=== PATIENT | male | born 1950 | race Caucasian/White ===

== ENCOUNTER 2017-01-16 18:54 | Inpatient (IN) | payer OTHER ==
[2017-01-16 19:21] LABS: COLOR YELLOW; LEUKOCYTE ESTERASE,URINE NEGATIVE (NEGATIVE); NITRITE,URINE NEGATIVE (NEGATIVE); PH,URINE 5.5 (5.0-7.5)
[2017-01-16] MEDS ORDERED: NS 1,000 ML IV ONE (19:36)
[2017-01-16 19:51] LABS: % IMMATURE GRANULYOCYTES 0.5 % (0.0-1.1); ABSOLUTE IMMATURE GRANULOCYTES 0.08 10^3/uL (0.00-0.10); ADD DIFF? NO; ADD MORPH? NO; ADD SCAN? NO; ATYPICAL LYMPHOCYTE FLAG 0 (0-99); FRAGMENT RBC FLAG 0 (0-99); HEMATOCRIT 39.6 % (40.0-51.0); HEMOGLOBIN 14.2 g/dL (13.7-17.5); LEFT SHIFT FLG 0 (0-99); LIPEMIA HEMOLYSIS FLAG 90 (0-99); MEAN CELL HEMOGLOBIN 30.7 pg (27.9-34.1); MEAN CELL HEMOGLOBIN CONCENTR. 35.9 g/dL (32.4-36.7); MEAN CELL VOLUME 85.5 fL (81.5-99.8); MEAN PLATELET VOLUME 9.7 fL (8.7-11.7); PLATELET CLUMPS FLAG 0 (0-99); PLATELET COUNT 177 10^3/uL (150-400); RED BLOOD CELL COUNT 4.63 10^6/uL (4.40-6.38); RED CELL DISTRIBUTION WIDTH 12.6 % (11.5-15.2)
[2017-01-16] MEDS ORDERED: KETOROLAC 30 MG/1 ML SDV IVP ONE (20:01)
[2017-01-16 20:07] LABS: ALANINE AMINOTRANSFERASE 32 IU/L (21-72); ALBUMIN 3.7 g/dL (3.5-5.0); ALKALINE PHOSPHATASE 61 IU/L (38-126); ANION GAP 16 mEq/L (8-16); ASPARTATE AMINOTRANSFERASE 25 IU/L (17-59); BILIRUBIN,TOTAL 0.9 mg/dL (0.1-1.4); CALCIUM 9.1 mg/dL (8.5-10.4); CARBON DIOXIDE 20 mEq/l (22-31); CHLORIDE 99 mEq/L (97-110); GLOMERULAR FILTRATION RATE > 60; GLUCOSE 112 mg/dL (70-100); POTASSIUM 3.6 mEq/L (3.5-5.2); SODIUM 135 mEq/L (134-144)
[2017-01-16] MEDS ORDERED: IOPAMIDOL (ISOVUE-300) 100 ML BTL IV ONE (20:23)
--- NOTE | 2017-01-16 20:40 | UCPHY ---
H & P Patient Type: Established Chief Complaint Nursing Narrative: diagnosed with spastic bronchial asthma a few weeks ago and has had a severe cough with this. This worsened approx 1 week ago when he developed a ton of nasal discharge. 2 days ago developed right side abdominal pain and abdominal distention and had a sypocal event while using the bathroom. Has no appetite, but denies vomiting and had nausea 2 days ago. Has been consipated with all of this and also complains of difficulty urinating. Time Seen by Provider: 01/16/17 19:36 HPI/ROS: This patient complains of abdominal pain. Explains that starting on Friday he developed pain associated with bloating and actually had 8/10 peak intensity. The bloating has resolved but he has now pain localized to the right lower quadrant. It is 3/10 at baseline goes 8/10 with movement. He was also recently diagnosed with bronchitis and he states that when he coughs he has more pain to the right lower quadrant. He has never had this pain before which she describes as achy and sharp. The intensity has been steadily increasing over the past 48 hours. He has anorexia. He did eat a sandwich this evening at 5:30 p.m.-girl cheese. ROS: No high fevers or chills. No other constitutional symptoms. HEENT: Mild coryza. No other complaints pulmonary: Dry cough no shortness of breath. GI: Again mild anorexia, no nausea vomiting or diarrhea. Reports normal bowel movements. : He reports mild difficulty initiating his urine stream and minimal dysuria associated with this. No testicular pain or swelling. No flank pain. 10 point ROS is otherwise negative. Source: Patient Exam Limitations: No limitations - Personal History Tetanus Vaccine Date: unsure - Medical/Surgical History PMH: Recent diagnosis of bronchitis Hypertension Hypercholesterolemia CABG 2006 P. Surg Hx: No previous abdominal surgeries Hx Asthma: Yes Hx Chronic Respiratory Disease: No Hx Diabetes: No Hx Cardiac Disease: Yes Hx Renal Disease: No Hx Cirrhosis: No Hx Alcoholism: No Hx HIV/AIDS: No Hx Splenectomy or Spleen Trauma: No Other PMH: Cabg 2006, high cholesterol, hypertension - Family History Significant Family History: No pertinent family hx - Social History Smoking Status: Never smoked Alcohol Use: Occasionally Drug Use: None - Physical Exam Exam: General Appearance: Alert, no distress. Eyes: Pupils equal and round no pallor or injection. ENT, Mouth: Mucous membranes moist. Respiratory: Occasional dry cough. There are no retractions, lungs are clear to auscultation. Cardiovascular: Regular rate and rhythm. Gastrointestinal: Normoactive bowel sounds. Soft, positive right lower quadrant tenderness with mild rebound tenderness. No upper belly tenderness. No organomegaly. Back: No CVA tenderness : No testicular tenderness or swelling Neurological: Alert with no focal deficits Skin: Warm and dry, no rashes. Musculoskeletal: Neck is supple nontender. Extremities are symmetrical, full range of motion. Psychiatric: Mood and affect normal DIFFERENTIAL DIAGNOSIS: After history and physical exam differential diagnosis was considered for appendicitis, diverticulitis, mesenteric adenitis, bowel obstruction Constitutional: Initial Vital Signs Temperature (C) 37.0 C 01/16/17 19:02 Heart Rate 114 H 01/16/17 19:02 Respiratory Rate 18 01/16/17 19:02 Blood Pressure 108/60 01/16/17 19:02 O2 Sat (%) 94 01/16/17 19:02 O2 Delivery Mode Room Air Allergies/Adverse Reactions: No Known Allergies Allergy (Unverified 04/08/16 18:31) Home Medications: Medication Instructions Recorded Lisinopril 04/08/16 Proair Respiclick 04/08/16 SIMVASTATIN 04/08/16 Singulair 04/08/16 Aspirin 325 mg (*) 01/16/17 Medical Decision Making - Diagnostics EKG Interpretation: 12 lead EKG performed at approximately 9:30 p.m.-preop appendicitis with history of CABG Sinus rhythm at 85 Inferior Q-waves. No acute ST abnormalities. Overall assessment sinus rhythm with evidence of old inferior infarct. (Please refer to trace master for complete read.) Imaging: CT abdomen pelvis with IV contrast reveals appendicitis with likely rupture per Dr. Woody MurilloShsiazw-jakucpoamzr-nedqyvsh significant inflammation surrounding the appendix. ED Course/Re-evaluation: IV normal saline bolus with resolution of tachycardia I reviewed the patient's labs-significant leukocytosis. Electrolytes normal The patient declined morphine stating that he has severe suppressed level of mentation/consciousness with even small doses of opiates in the past. He is given Toradol instead 30 mg IV he had good pain relief from this has mild discomfort after Toradol. After review of CT scan, ertapenem 1 g IV I spoke with Dr. Ze Lemus, general surgeon on-call who accepts patient for transfer to [facility] I spoke to Dr. Nation, emergency physician at [facility] accepts the patient for transfer. EMS is here at 9:48 p.m. for transfer. Patient is comfortable with stable vital signs. He understands the plan to proceed to [facility] for surgery - Data Points Laboratory Results: Laboratory Results 01/16/17 19:43 01/16/17 19:43 01/16/17 01/16/17 01/16/17 19:43 19:43 19:10 WBC 17.62 10^3/uL H 10^3/uL (3.80-9.50) RBC 4.63 10^6/uL 10^6/uL (4.40-6.38) Hgb 14.2 g/dL g/dL (13.7-17.5) Hct 39.6 % L % (40.0-51.0) MCV 85.5 fL fL (81.5-99.8) MCH 30.7 pg pg (27.9-34.1) MCHC 35.9 g/dL g/dL (32.4-36.7) RDW 12.6 % % (11.5-15.2) Plt Count 177 10^3/uL 10^3/uL (150-400) MPV 9.7 fL fL (8.7-11.7) Neut % (Auto) 83.7 % H % (39.3-74.2) Lymph % (Auto) 7.4 % L % (15.0-45.0) [place] % (Auto) 8.2 % % (4.5-13.0) Eos % (Auto) 0.1 % L % (0.6-7.6) Baso % (Auto) 0.1 % L % (0.3-1.7) Nucleat RBC Rel Count 0.0 % % (0.0-0.2) Absolute Neuts (auto) 14.75 10^3/uL H 10^3/uL (1.70-6.50) Absolute Lymphs (auto) 1.31 10^3/uL 10^3/uL (1.00-3.00) Absolute Monos (auto) 1.45 10^3/uL H 10^3/uL (0.30-0.80) Absolute Eos (auto) 0.01 10^3/uL L 10^3/uL (0.03-0.40) Absolute Basos (auto) 0.02 10^3/uL 10^3/uL (0.02-0.10) Absolute Nucleated RBC 0.00 10^3/uL 10^3/uL (0-0.01) Immature Gran % 0.5 % % (0.0-1.1) Immature Gran # 0.08 10^3/uL 10^3/uL (0.00-0.10) Sodium 135 mEq/L mEq/L (134-144) Potassium 3.6 mEq/L mEq/L (3.5-5.2) Chloride 99 mEq/L mEq/L (97-110) Carbon Dioxide 20 mEq/l L mEq/l (22-31) Anion Gap 16 mEq/L mEq/L (8-16) BUN 25 mg/dL H mg/dL (7-23) Creatinine 1.0 mg/dL mg/dL (0.7-1.3) Estimated GFR > 60 Glucose 112 mg/dL H mg/dL (70-100) Calcium 9.1 mg/dL mg/dL (8.5-10.4) Total Bilirubin 0.9 mg/dL mg/dL (0.1-1.4) AST 25 IU/L IU/L (17-59) ALT 32 IU/L IU/L (21-72) Alkaline Phosphatase 61 IU/L IU/L (38-126) Total Protein 7.0 g/dL g/dL (6.3-8.2) Albumin 3.7 g/dL g/dL (3.5-5.0) Lipase 103.0 IU/L IU/L (23-300) Urine Color YELLOW Urine Appearance CLEAR Urine pH 5.5 (5.0-7.5) Ur Specific [place] 1.015 (1.002-1.030) Urine Protein NEGATIVE (NEGATIVE) Urine Ketones TRACE H (NEGATIVE) Urine Blood NEGATIVE (NEGATIVE) Urine Nitrate NEGATIVE (NEGATIVE) Urine Bilirubin NEGATIVE (NEGATIVE) Urine Urobilinogen 0.2 EU EU (0.2-1.0) Ur Leukocyte Esterase NEGATIVE (NEGATIVE) Ur Culture Indicated? NOT INDICATED (NI) Urine Glucose NEGATIVE (NEGATIVE) Medications Given: Discontinued Medications Sodium Chloride (Ns) 1,000 mls @ 0 mls/hr IV ONCE ONE PRN Reason: Wide Open Stop: 01/16/17 19:37 Last Admin: 01/16/17 20:05 Dose: 1,000 mls Ertapenem 1 gm/ Sodium (Chloride) 100 mls @ 200 mls/hr IV EDNOW ONE PRN Reason: Protocol Stop: 01/16/17 21:30 Last Admin: 01/16/17 21:05 Dose: 100 mls Ketorolac Tromethamine (Toradol) 30 mg IVP EDNOW ONE Stop: 01/16/17 20:02 Last Admin: 01/16/17 20:11 Dose: 30 mg Departure - Departure Disposition: Home, Routine, Self-Care Clinical Impression: Acute appendicitis with rupture Condition: Fair Referrals: NONE *PRIMARY CARE P,. [Primary Care Provider] - As per Instructions - PQRS PQRS Measurement: 134: Depression screening and followup, PRIME MD-PHQ2 (12 years and older) Over the last 2 weeks, how often have you been bothered by any of the following problems? 1. Feeling down, depressed, or hopeless? 2. Little interest or pleasure in doing things? Patient answered no to both 1 and 2 130: Documentation of medications. Reviewed all patient medications, doses, route and frequency. 226: Do you smoke? [No.] 47: 65 and older: Advanced care planning. Patient designates surrogate decision maker as spouse 51: 18 years old and older with diagnosis of COPD, spirometry performance. NA 52: 18 years old and older with COPD and symptoms of COPD or FEV1<60% predicted prescribed a B Agonist. NA
[2017-01-16] MEDS ORDERED: ERTAPENEM 1 GM in NS 100 ML IV ONE (21:01)
--- NOTE | 2017-01-16 21:26 | CPEKG ---
Heart Rate: 85 RR Interval: 706 P-R Interval: 168 QRSD Interval: 104 QT Interval: 360 QTC Interval: 428 P Soledad: 68 QRS Soledad: 32 T Wave Soledad: 20 EKG Severity - ABNORMAL ECG - EKG Impression: SINUS RHYTHM EKG Impression: INFERIOR INFARCT, AGE INDETERMINATE Electronically Signed By: Denzel Elise 16-Jan-2017 21:47:34
[2017-01-16] MEDS ORDERED: ceFAZolin 1 GM VIAL ONE (22:08)
[2017-01-16] MEDS ORDERED: BUPIVACAINE 0.5% 30 ML SDV ONE (22:08)
[2017-01-16] MEDS ORDERED: ceFAZolin 1 GM/5 ML SYR ONE ×2 (22:09→22:34)
[2017-01-16] MEDS ORDERED: HEPARIN 1000 UNIT/1 ML MDV ONE (22:34)
[2017-01-16] MEDS ORDERED: MIDAZOLAM 2 MG/2 ML VIAL ONE (22:46)
[2017-01-16] MEDS ORDERED: fentaNYL 100 MCG/2 ML INJ ONE (22:51)
[2017-01-16] MEDS ORDERED: PROPOFOL 200 MG/20 ML VIAL ONE ×2 (22:51)
--- NOTE | 2017-01-16 23:31 | GHP ---
DATE OF ADMISSION: 01/16/2017 PREOPERATIVE DIAGNOSIS: Possible perforated appendicitis. HISTORY OF PRESENT ILLNESS: A 66-year-old male who developed abdominal pain nearly 72 hours ago, an d his pain is persistent in the right lower quadrant. He came to the emergency room tonight. A CT scan shows appendicitis with probable perforation. White count is markedly elevated at 15,000. He is afebrile. He has not been able the eat much today. No emesis or diarrhea. He has had no previo us abdominal surgery. He is admitted at this time for laparoscopic appendectomy. The risks and opt ions have been fully discussed with the patient and his who wished to proceed. PAST HISTORY: Coronary artery bypass. Rotator cuff surgery. [place] teeth extraction. MEDICATIONS: Lisinopril, Zocor, and aspirin. ALLERGIES: None to medications, but severe seasonal allergies. REVIEW OF SYSTEMS: Reveals he has had asthma in the past but that seemed to resolve with moving to [place]. He denies any active cardiac symptoms, peptic ulcer disease, epilepsy, diabetes, or any o ther major medical problems on a full complete review of systems. PHYSICAL EXAMINATION: GENERAL APPEARANCE: He is an alert, 66-year-old male who is in some discomfo rt. Quite talkative. He is afebrile. HEAD and NECK: Reveals no icterus, no adenopathy, and no br uits. CHEST: Clear and symmetrical. CARDIAC: Regular rhythm without murmurs. ABDOMEN: Soft. H e is very tender in the right lower quadrant with guarding and some rebound. There are no hernias. GENITALIA: Normal. EXTREMITIES: Benign with full pulses. IMPRESSION: Acute appendicitis with possible perforation. PLAN: Laparoscopic appendectomy. Risks and options have been fully discussed, and he wishes to pro ceed. /[id number]/MODL
[2017-01-16] MEDS ORDERED: ONDANSETRON 4 MG/2 ML VIAL ONE (23:34)
[2017-01-16] MEDS ORDERED: DEXAMETHASONE 4 MG/ML VIAL ONE (23:34)
[2017-01-16] MEDS ORDERED: KETOROLAC 30 MG/1 ML SDV ONE (23:34)
--- NOTE | 2017-01-17 00:06 | POSTOPPROG ---
Post Op Note Date of Operation: 01/17/17 Surgeon: Scott Lemus Anesthesiologist: JOHN Anesthesia: GET(General Endotracheal) Pre-op Diagnosis: PERFORATED APPENDIX Post-op Diagnosis: SAME Indication: RLQ PAIN Procedure: LAP APPE AND DRAINAGE Findings: GANGRENOUS APPE WITH LOCALIZED SMALL ABSCESS Inf/Abcess present in the surg proc area at time of surgery?: Yes Depth: Organ Space EBL: Minimal Complications: 0 Drains: Saqib Webb Specimen(s): APPENDIX
[2017-01-17] MEDS ORDERED: ONDANSETRON 4 MG/2 ML VIAL IVP PRN (00:07)
[2017-01-17] MEDS ORDERED: HYDROmorphONE/DILAUDID 1 MG/ML SYR IVP PRN (00:07)
[2017-01-17] MEDS ORDERED: D5W 1/2 NS W/ 20 KCl/L 1,000 ML IV SCH (00:15)
--- NOTE | 2017-01-17 03:21 | GOP ---
DATE OF OPERATION: 01/16/2017 SURGEON: Scott Lemus MD PREOPERATIVE DIAGNOSIS: Perforated appendix. POSTOPERATIVE DIAGNOSIS: Perforated appendix. PROCEDURE PERFORMED: Laparoscopic appendectomy and drainage of appendiceal abscess. FINDINGS: The patient was found to have acute gangrenous retrocecal appendicitis, with early perfor ation. ESTIMATED BLOOD LOSS: Blood loss was negligible. No complications. He was taken to the recovery room in good condition. DESCRIPTION OF PROCEDURE: The patient was taken to the operating room where he received satisfactor y general endotracheal anesthesia by Dr. Jolley. Placed in supine position, prepped and draped in th e usual sterile fashion. A periumbilical incision was made. A Veress needle inserted. Pneumoperit oneum was established. A trocar was introduced. Laparoscope introduced. Good visualization was ob tained. Two other trocars were placed in the lower abdomen under direct vision. The cecum was rota farhad medially. The appendix was identified in the retrocecal position. It was quite fixed to the wa ll of the cecum and to the retroperitoneum. This was freed up with the Harmonic Scalpel until the b ase of the appendix could be well identified. The mesoappendix was divided with the Harmonic Scalpe l. The base of the appendix was divided with the Endo-NARCISA stapler. The appendix was taken down in a retrograde manner, it from the retroperitoneum and the posterolateral wall of the cecum and ascending colon. There was a small abscess that was encountered. The appendix was placed in a specimen bag and extracted through the upper midline port site. The wound was copiously irrigated. A 15 round silicone MARK drain was brought in through one of the trocar sites, placed in the cul-de- sac and the right gutter was secured to the skin with a 3-0 silk suture. Prior to this, the wound h ad been copiously irrigated, and all easy to remove debris was suctioned free. Trocars were then re moved under direct vision. Trocar sites were closed with 0 Vicryl for the fascia, 4-0 Monocryl subc uticular stitch for the skin. All wounds were infiltrated with 0.5% Marcaine. He tolerated the pro cedure well. /[id number]/MODL
[2017-01-17] MEDS: KETOROLAC 15 MG/1 ML SDV IVP SCH ×3 (06:12→18:14)
[2017-01-17] MEDS: ERTAPENEM 1 GM in NS 100 ML IV SCH (09:11)
[2017-01-17] MEDS: ENOXAPARIN 40 MG/0.4 ML SYR SC SCH (09:14)
--- NOTE | 2017-01-17 17:03 | SOAPPROG ---
SOAP Progress Note Assessment/Plan: Assessment: DOING WELL POSTOP PERFORATED APPENDIX / AFEBRILE AND MINIMAL PAIN / TOLERATING CLEARS Plan: PROBABLY HOME IN THE A.M. ON ORAL ANTIBIOTICS AND FOLLOW-UP NEXT WEEK FOR DRAIN REMOVAL 01/17/17 17:02 Objective: Vital Signs Temp Pulse Resp BP Pulse Ox 37.0 C 62 16 100/64 94 01/17/17 12:00 01/17/17 12:00 01/17/17 12:00 01/17/17 12:00 01/17/17 12:00 01/16/17 01/17/17 01/18/17 05:59 05:59 05:59 Intake Total 2420 Output Total 300 Balance 2120 ICD10 Worksheet Patient Problems: Problems Problem Status Onset Acute appendicitis with rupture Acute
[2017-01-17] MEDS: OXYCODONE/APAP 5/325 TAB PO PRN (18:16)
[2017-01-17] MEDS ORDERED: ALBUTEROL 3 ML DEYVIAL IH PRN (18:39)
[2017-01-18] MEDS: KETOROLAC 15 MG/1 ML SDV IVP SCH ×2 (00:29→06:26)
[2017-01-18] MEDS: OXYCODONE/APAP 5/325 TAB PO PRN ×2 (00:37→11:20)
--- NOTE | 2017-01-18 08:16 | SOAPPROG ---
SOAP Progress Note Assessment/Plan: Assessment: s/p lap appy for gangrenous appendicitis. Much improved DC home augmentin and norco S: Flatus but no BM. Pain controlled O: BS present, soft, incisions cdi, MARK serosang Plan: 01/18/17 08:15 Objective: Vital Signs Temp Pulse Resp BP Pulse Ox 37.1 C 72 17 124/63 H 91 L 01/18/17 06:25 01/18/17 06:25 01/18/17 06:25 01/18/17 06:25 01/18/17 06:25 01/17/17 01/18/17 01/19/17 05:59 05:59 05:59 Intake Total 2420 500 Output Total 300 2.5 Balance 2120 497.5 ICD10 Worksheet Patient Problems: Problems Problem Status Onset Acute appendicitis with rupture Acute
[2017-01-18] MEDS: ENOXAPARIN 40 MG/0.4 ML SYR SC SCH (08:40)
[2017-01-18] MEDS: ERTAPENEM 1 GM in NS 100 ML IV SCH (08:41)
[2017-01-18 09:33] VITALS: RESP 18
[2017-01-18 09:45] VITALS: BP 115/57; PULSE 88; TEMP 99.8; O2SAT 91
[2017-01-18] MEDS ORDERED: FLU VACC QS 2016-17(3-64YR)/PF 0.5 ML SYR (FLUARIX QUAD) IM ONE (09:52)
== END 2017-01-18 12:10 | disposition home or self-care (01) | DRG 340 ==
LOC: CED 18:54 → CEDHOLD 21:17 → FOB 01-17 00:45
PROVIDERS: ADMIT Surgery; ATTEND Surgery
PROC: 0DTJ4ZZ Resection of Appendix, Percutaneous Endoscopic Approach (ICD-10-PCS; principal; 2017-01-16 22:00)
DX: K35.2 Acute appendicitis with generalized peritonitis (principal); I10 Essential (primary) hypertension; E78.00 Pure hypercholesterolemia, unspecified; J45.909 Unspecified asthma, uncomplicated; Z23 Encounter for immunization; Z95.1 Presence of aortocoronary bypass graft
CPT/HCPCS: 74177-PO; 80053-PO; 81003-PO; 83690-PO; 85025-PO; 96361-PO; 96365-PO; 96375-PO; 99215-PO; G0008; G0463-PO; J0690; J1100; J1335; J1650; J1885; J2250; J2405; J2704; J3010; Q9967

== ENCOUNTER 2017-01-20 19:38 | Emergency (ER) | payer OTHER | END 2017-01-20 19:49 | disposition left against medical advice (07) | LOC: CED 19:38 | DX: T85.638A Leakage of other specified internal prosthetic devices, implants and grafts, initial encounter (principal); Z53.8 Procedure and treatment not carried out for other reasons ==

== ENCOUNTER 2017-01-20 20:11 | Emergency (ER) | payer OTHER ==
[2017-01-20 20:23] VITALS: BP 127/79; PULSE 87; RESP 16; TEMP 98.1; O2SAT 94
--- NOTE | 2017-01-20 21:01 | EDPHY ---
H & P Stated Complaint: apendectomy on , incision leaking Time Seen by Provider: 01/20/17 21:01 - Personal History Current Tetanus/Diphtheria Vaccine: Unsure Current Tetanus Diphtheria and Acellular Pertussis (TDAP): Unsure Tetanus Vaccine Date: unsure - Medical/Surgical History Hx Asthma: Yes Hx Chronic Respiratory Disease: No Hx Diabetes: No Hx Cardiac Disease: Yes Hx Renal Disease: No Hx Cirrhosis: No Hx Alcoholism: No Hx HIV/AIDS: No Hx Splenectomy or Spleen Trauma: No Other PMH: Cabg 2005, high cholesterol, hypertension, appendectomy 2016 - Social History Smoking Status: Never smoked Constitutional: Initial Vital Signs Temperature (C) 36.7 C 01/20/17 20:20 Heart Rate 87 01/20/17 20:20 Respiratory Rate 16 01/20/17 20:20 Blood Pressure 127/79 H 01/20/17 20:20 O2 Sat (%) 94 01/20/17 20:20 O2 Delivery Mode Room Air Allergies/Adverse Reactions: No Known Allergies Allergy (Verified 01/20/17 20:23) Home Medications: Medication Instructions Recorded Albuterol [Proventil Inhaler HFA 1 - 2 puffs IH DAILY PRN 04/08/16 (*)] Atorvastatin Calcium [Lipitor 40 80 mg PO DAILY 04/08/16 mg (*)] Lisinopril [Zestril 10 mg (*)] 10 mg PO DAILY 04/08/16 Montelukast Sodium [Singulair 10 10 mg PO DAILY 04/08/16 mg (*)] Aspirin [Aspirin 325 mg (*)] 325 mg PO DAILY 01/16/17 Amoxicillin/Clavulanate Pot 875 mg PO BID #0 tab 01/18/17 [Augmentin 875 MG TAB (*)] oxyCODONE/APAP 5/325 [Percocet 1 - 2 tab PO Q4 PRN #0 tab 01/18/17 5/325 (*)] Medical Decision Making ED Course/Re-evaluation: CHIEF COMPLAINT: Appendectomy drainage device leaking. HISTORY OF PRESENT ILLNESS: The patient is a 66-year-old male status post appendectomy 4 days ago who presents because his appendectomy device is leaking serosanguineous discharge. This began today. He denies bleeding, fever, or other complications. His device was supposed to come out today anyway. REVIEW OF SYSTEMS: A 10 point review of systems was performed and is negative with the exception of the elements mentioned in the history of present illness. PHYSICAL EXAM: HR, BP, O2 Sat, RR. Temp noted General Appearance: Alert, well hydrated, appropriate, and non-toxic appearing. Head: Atraumatic without scalp tenderness or obvious injury Eyes: Pupils equal, round, reactive to light and accommodation, EOMI, no trauma , no injection. Ears: Clear bilaterally, no perforation, normal landmarks Nose: Atraumatic, no rhinorrhea, clear. Throat: There is no erythema or exudates, no lesions, normal tonsils, mucus membranes moist. Neck: Supple, 2+ carotid upstroke, nontender, no lymphadenopathy. Respiratory: No retractions, no distress, no wheezes, and no accessory muscle use. Lungs are clear to auscultation bilaterally. Cardiovascular: Regular rate and rhythm, no murmurs, rubs, or gallops. Bilateral carotid, radial, dorsalis pedis, and posterior tibial pulses intact. Good capillary refill all extremities. Gastrointestinal: Abdomen is soft, nontender, non-distended, no masses, no rebound, no guarding, no peritoneal signs. Appendectomy drain in place. There is clear serosanguineous discharge from around the entry point. There is no blood and no pus. Musculoskeletal: Normal active ROM of all extremities, atraumatic. Neurological: Alert, appropriate, and interactive. The patient has normal DTRs and non-focal cranial nerves, motor, sensory, and cerebellar exam. Skin: No rashes, good turgor, no nodules on palpation. Past medical history: CABG, hypercholesterolemia, hypertension. Past surgical history:Appendectomy. Family history:N/A. Social history:. DIFFERENTIAL DIAGNOSIS: MEDICAL DECISION MAKIN-year-old male status post appendectomy by Dr. Lemus 4 days ago. His appendectomy drain was supposed to be removed today but he could not get an appointment until Friday. This morning he noticed that there was clear drainage seeping out from around the entry point of the drain in his lower abdomen. There is no blood and no pus in the discharge. The wound otherwise looks good. His other incisions are clean, dry, and intact. I have removed the drain and the patient will follow up with Dr. Lemus on Friday as scheduled. Departure - Departure Disposition: Home, Routine, Self-Care Clinical Impression: appencectomy drain removal Condition: Good Instructions: Acute Wounds (ED) Additional Instructions: Follow up Dr. Lemus on Friday as scheduled. Return to the emergency department for any serious worsening of condition. Referrals: Mateo Gillespie MD [Primary Care Provider] - As per Instructions Scott Lemus MD [Medical Doctor] - As per Instructions Report Scribed for: Bienvenido Rivera Report Scribed by: Ruiz Simpson Date of Report: 01/20/17 Time of Report: 21:20
== END 2017-01-20 21:15 | disposition home or self-care (01) ==
DX: Z46.59 Encounter for fitting and adjustment of other gastrointestinal appliance and device (principal); J45.909 Unspecified asthma, uncomplicated; I10 Essential (primary) hypertension; Z79.82 Long term (current) use of aspirin; Y73.2 Prosthetic and other implants, materials and accessory gastroenterology and urology devices associated with adverse incidents

== ENCOUNTER 2018-03-07 13:40 | Emergency (ER) | payer OTHER ==
[2018-03-07] MEDS ORDERED: DEXAMETHASONE 4 MG TAB PO ONE (14:55)
--- NOTE | 2018-03-07 15:59 | EDPHY ---
H & P Time Seen by Provider: 03/07/18 14:34 HPI/ROS: CHIEF COMPLAINT: Severe left-sided neck pain HISTORY OF PRESENT ILLNESS: This is a 67-year-old gentleman who presents to the emergency department reporting that the patient has had intense left lower neck/trapezius pain [No fever, chills, chest pain, shortness of breath, palpitations, vomiting, diarrhea, urinary complaints, headache, lightheadedness. ] REVIEW OF SYSTEMS: Aside from elements discussed in the HPI, a comprehensive 10-point review of systems was reviewed and is negative. PAST MEDICAL HISTORY: [ ] SOCIAL HISTORY: [ ] Smoking Status: Never smoked Constitutional: Initial Vital Signs Temperature (C) 37.0 C 03/07/18 14:19 Heart Rate 81 03/07/18 14:19 Respiratory Rate 18 03/07/18 14:19 Blood Pressure 127/84 H 03/07/18 14:19 O2 Sat (%) 96 03/07/18 14:19 O2 Delivery Mode Room Air Allergies/Adverse Reactions: Beta-Blockers (Beta-Adrenergic Bloc Allergy (Verified 03/07/18 14:18) Home Medications: Medication Instructions Recorded Albuterol [Proventil Inhaler HFA 1 - 2 puffs IH DAILY PRN 04/08/16 (*)] Atorvastatin Calcium [Lipitor 40 80 mg PO DAILY 04/08/16 mg (*)] Lisinopril [Zestril 10 mg (*)] 10 mg PO DAILY 04/08/16 Montelukast Sodium [Singulair 10 10 mg PO DAILY 04/08/16 mg (*)] Aspirin [Aspirin 325 mg (*)] 325 mg PO DAILY 01/16/17 Amoxicillin/Clavulanate Pot 875 mg PO BID #0 tab 01/18/17 [Augmentin 875 MG TAB (*)] oxyCODONE/APAP 5/325 [Percocet 1 - 2 tab PO Q4 PRN #0 tab 01/18/17 5/325 (*)] Diazepam [Valium 5 MG (*)] 2.5 - 5 mg PO TID PRN #20 tab 03/07/18 Gabapentin [Neurontin 300 MG (*)] 300 mg PO HS #20 cap 03/07/18 methylPREDNISolone [Medrol Dose 4 mg PO DAILY #1 ea 03/07/18 Zaid] oxyCODONE/APAP 5/325 [Percocet 1 tab PO QID PRN #20 tab 03/07/18 5/325 (*)] Medical Decision Making - Diagnostics Imaging Results: Imaging Impressions Cervical Spine CT 03/07/18 14:55 Impression: 1. No acute fracture identified. 2. Expansile destructive lesion involving the left C4 lateral mass. This is likely degenerative change limited to the facet joint (degenerative geode) although a lytic lesion of other etiology cannot absolutely be excluded. 3. Multi level disk and uncovertebral joint degenerative disease. Results called [place] [facility] [place] Results called to at . Final results are concordant with the initial interpretation. General information for patients regarding this examination can be found at [email or web address]. If you have questions or comments about this report, please contact me at [phone](hospital) or [phone] (cell). - Data Points Medications Given: Discontinued Medications Dexamethasone (Decadron) 8 mg PO EDNOW ONE Stop: 03/07/18 14:56 Last Admin: 03/07/18 15:39 Dose: 8 mg Departure - Departure Disposition: Home, Routine, Self-Care Clinical Impression: Neck pain on left side Condition: Good Instructions: Neck Pain (ED), Chronic Neck Pain (DC) Additional Instructions: Musculoskeletal pain is often treated with anti-inflammatories, muscle relaxants , and pain medications. Anti-inflammatories: I recommend Ibuprofen (Motrin, Advil) or Naproxen Sodium (Aleve) for pain and anti-inflammatory effects. You may take either one, but do not take both. Your dose is: Ibuprofen 600 mg every 6-8 hours with food. OR Naproxen Sodium (Aleve) 220 mg every 12 hours. You have also been given a prescription for a Medrol Dosepak to use as directed to treat inflammation. Please begin taking this tomorrow. Muscle relaxants: For muscle relaxation, you been given a prescription of Valium. Please take this as directed. It may make you sleepy. Use this in place of Flexeril. Do not take them both. Pain relief I also suggest lidocaine patches. 4% lidocaine patches are available over-the- counter. You may also take Tylenol, 650-1000 mg. You been also been given a prescription of hydrocodone to use as needed for more severe pain. Please begin taking gabapentin 300 mg at night, as this may help with chronic pain. Please follow up with Neurosurgery for further evaluation. Return to the emergency department if you experience significantly worsening pain, pain radiating into the arms, weakness, numbness or tingling, difficulties with bowel or bladder, fever, nausea, vomiting, or other concerns. Referrals: Mateo Gillespie MD [Primary Care Provider] - As per Instructions Lenny Rea MD [Medical Doctor] - As per Instructions Prescriptions: Diazepam [Valium 5 MG (*)] 2.5 - 5 mg PO TID PRN #20 tab PRN Reason: muscle spasm Gabapentin [Neurontin 300 MG (*)] 300 mg PO HS #20 cap methylPREDNISolone [Medrol Dose Zaid] 4 mg PO DAILY #1 ea oxyCODONE/APAP 5/325 [Percocet 5/325 (*)] 1 tab PO QID PRN #20 tab PRN Reason: Pain
[2018-03-07 16:45] VITALS: BP 142/94
--- NOTE | 2018-03-07 16:57 | EDPHY ---
H & P Stated Complaint: neck pain continued for months, seen at urgent care on 03/05 Time Seen by Provider: 03/07/18 14:34 HPI/ROS: CHIEF COMPLAINT: Severe neck pain HISTORY OF PRESENT ILLNESS: 67-year-old gentleman presents emergency department reporting chronic neck pain which began last July and became persistent from November 2017 forward. Patient has been seen by his primary care physician on several occasions. He describes fairly well-localized left lower neck discomfort which is worse in the mornings. He has intermittently received recommendations regarding ibuprofen, muscle relaxants, lidocaine patches, massage therapy, chiropractic manipulation, as well as undergoing a local injection several days ago. He really has only had minimal and intermittent relief of this neck discomfort since November. He has had no numbness or tingling in his arm, no weakness, no thoracic pain, no lumbar pain, no trauma. No fever, chills, chest pain, shortness of breath, palpitations, vomiting, diarrhea, urinary complaints, headache, lightheadedness. REVIEW OF SYSTEMS: Aside from elements discussed in the HPI, a comprehensive 10-point review of systems was reviewed and is negative. PAST MEDICAL HISTORY: History of a CABG. On aspirin daily. SOCIAL HISTORY: Nonsmoker. VITAL SIGNS: see nurse's notes. GENERAL: Well-developed, well-nourished, in moderate discomfort, patient has lidocaine patch over the left trapezius and at the left side base of the neck. HEENT: Normal, no discharge or icterus, moist mucous membranes. Neck: No midline tenderness to palpation. No tenderness to palpation of the thoracic spine. Palpable spasm, area of tenderness, just to the left of midline along C7 T1 area. LUNGS: Clear to auscultation bilaterally, no wheezes, rhonchi or rales. CARDIAC: Regular rate and rhythm, no rubs, murmurs or gallops. ABDOMEN: Soft, nontender, nondistended, bowel sounds normal. BACK: No CVA tenderness. No vertebral tenderness. EXTREMITIES: No edema, FROM. Full range of motion at the left shoulder. No tenderness to palpation over the left shoulder. Normal deltoid sensation. NEURO: Alert and oriented, cranial nerves 2-12 are intact. Motor strength in the upper extremities is 5/5 throughout. Sensation intact to light touch throughout the upper extremities. grossly nonfocal. SKIN: Warm and dry, no rash. - Personal History Tetanus Vaccine Date: unsure - Medical/Surgical History Hx Asthma: Yes Hx Chronic Respiratory Disease: No Hx Diabetes: No Hx Cardiac Disease: Yes Hx Renal Disease: No Hx Cirrhosis: No Hx Alcoholism: No Hx HIV/AIDS: No Hx Splenectomy or Spleen Trauma: No Other PMH: Cabg 2006, high cholesterol, hypertension, appendectomy 2017 - Social History Smoking Status: Never smoked Constitutional: Initial Vital Signs Temperature (C) 37.0 C 03/07/18 14:19 Heart Rate 81 03/07/18 14:19 Respiratory Rate 18 03/07/18 14:19 Blood Pressure 127/84 H 03/07/18 14:19 O2 Sat (%) 96 03/07/18 14:19 O2 Delivery Mode Room Air Allergies/Adverse Reactions: Beta-Blockers (Beta-Adrenergic Bloc Allergy (Verified 03/07/18 14:18) Home Medications: Medication Instructions Recorded Albuterol [Proventil Inhaler HFA 1 - 2 puffs IH DAILY PRN 04/08/16 (*)] Atorvastatin Calcium [Lipitor 40 80 mg PO DAILY 04/08/16 mg (*)] Lisinopril [Zestril 10 mg (*)] 10 mg PO DAILY 04/08/16 Montelukast Sodium [Singulair 10 10 mg PO DAILY 04/08/16 mg (*)] Aspirin [Aspirin 325 mg (*)] 325 mg PO DAILY 01/16/17 Amoxicillin/Clavulanate Pot 875 mg PO BID #0 tab 01/18/17 [Augmentin 875 MG TAB (*)] oxyCODONE/APAP 5/325 [Percocet 1 - 2 tab PO Q4 PRN #0 tab 01/18/17 5/325 (*)] Diazepam [Valium 5 MG (*)] 2.5 - 5 mg PO TID PRN #20 tab 03/07/18 Gabapentin [Neurontin 300 MG (*)] 300 mg PO HS #20 cap 03/07/18 methylPREDNISolone [Medrol Dose 4 mg PO DAILY #1 ea 03/07/18 Zaid] oxyCODONE/APAP 5/325 [Percocet 1 tab PO QID PRN #20 tab 03/07/18 5/325 (*)] Medical Decision Making - Diagnostics Imaging Results: Imaging Impressions Cervical Spine CT 03/07/18 14:55 Impression: 1. No acute fracture identified. 2. Expansile destructive lesion involving the left C4 lateral mass. This is likely degenerative change limited to the facet joint (degenerative geode) although a lytic lesion of other etiology cannot absolutely be excluded. 3. Multi level disk and uncovertebral joint degenerative disease. Results called to Dr. Orozco at the [facility] [place]. Results called to at . Final results are concordant with the initial interpretation. General information for patients regarding this examination can be found at [email or web address]. If you have questions or comments about this report, please contact me at (hospital) or [phone] (cell). Imaging: Discussed imaging studies w/ on call Radiologist ED Course/Re-evaluation: Patient's a he has had serial on multiple evaluations of his ongoing neck pain and has had multiple attempts at conservative therapy thus far. He has not had any imaging studies done. Patient did have a CT scan of his cervical spine which demonstrates degenerative joint disease as well as a expansile cystic lesion at the level of C4 the was most likely related to the degenerative changes but a lytic lesion cannot be fully excluded. Patient was provided with prescription for oxycodone to use as needed for severe pain, he will start gabapentin nightly to treat his chronic pain, he was given a Medrol Dosepak to use for anti inflammatory affects, was provided with a prescription of Valium to use instead of his Flexeril for muscle spasm. He was referred to Dr. Stovall or one of Dr. Stovall's collegues for consideration of other treatment modalities for his neck discomfort. Differential Diagnosis: After history was obtained and physical exam performed, the differential for this patient's neck pain pain was considered including but not limited to muscular pain, herniated disc, spine fracture, lytic lesions, occult fracture, pathologic fracture. - Data Points Medications Given: Discontinued Medications Dexamethasone (Decadron) 8 mg PO EDNOW ONE Stop: 03/07/18 14:56 Last Admin: 03/07/18 15:39 Dose: 8 mg Departure - Departure Disposition: Home, Routine, Self-Care Clinical Impression: Neck pain on left side Condition: Good Instructions: Neck Pain (ED), Chronic Neck Pain (DC) Additional Instructions: Musculoskeletal pain is often treated with anti-inflammatories, muscle relaxants , and pain medications. Anti-inflammatories: I recommend Ibuprofen (Motrin, Advil) or Naproxen Sodium (Aleve) for pain and anti-inflammatory effects. You may take either one, but do not take both. Your dose is: Ibuprofen 600 mg every 6-8 hours with food. OR Naproxen Sodium (Aleve) 220 mg every 12 hours. You have also been given a prescription for a Medrol Dosepak to use as directed to treat inflammation. Please begin taking this tomorrow. Muscle relaxants: For muscle relaxation, you been given a prescription of Valium. Please take this as directed. It may make you sleepy. Use this in place of Flexeril. Do not take them both. Pain relief I also suggest lidocaine patches. 4% lidocaine patches are available over-the- counter. You may also take Tylenol, 650-1000 mg. You been also been given a prescription of hydrocodone to use as needed for more severe pain. Please begin taking gabapentin 300 mg at night, as this may help with chronic pain. Please follow up with Neurosurgery for further evaluation. Return to the emergency department if you experience significantly worsening pain, pain radiating into the arms, weakness, numbness or tingling, difficulties with bowel or bladder, fever, nausea, vomiting, or other concerns. Referrals: Mateo Gillespie MD [Primary Care Provider] - As per Instructions Lenny Rea MD [Medical Doctor] - As per Instructions Prescriptions: Diazepam [Valium 5 MG (*)] 2.5 - 5 mg PO TID PRN #20 tab PRN Reason: muscle spasm Gabapentin [Neurontin 300 MG (*)] 300 mg PO HS #20 cap methylPREDNISolone [Medrol Dose Zaid] 4 mg PO DAILY #1 ea oxyCODONE/APAP 5/325 [Percocet 5/325 (*)] 1 tab PO QID PRN #20 tab PRN Reason: Pain
== END 2018-03-07 16:32 | disposition home or self-care (01) ==
LOC: CED 13:40
DX: M54.2 Cervicalgia (principal); Z79.82 Long term (current) use of aspirin
CPT/HCPCS: 72125-PO

== ENCOUNTER → 2018-03-31 | Outpatient (CLI) | payer OTHER ==
[~2018-03-31] MED LIST: GADOBUTROL 10 ML VIAL IVP ONE
== END ==
LOC: FIMAGING 06:35
PROVIDERS: ATTEND Neurological Surgery
DX: M89.8X8 Other specified disorders of bone, other site (principal); M50.31 Other cervical disc degeneration, high cervical region; M48.02 Spinal stenosis, cervical region; G95.20 Unspecified cord compression
CPT/HCPCS: 72156; A9585

== ENCOUNTER → 2018-07-15 | Outpatient (CLI) | payer OTHER | LOC: BHFA 16:00 | PROVIDERS: ATTEND Internal Medicine Cardiovascular Disease | DX: R00.1 Bradycardia, unspecified (principal) ==

== ENCOUNTER 2018-09-23 14:11 | Observation (INO) | payer OTHER ==
[2018-09-23 15:22] LABS: PLATELET COUNT 170 10^3/uL (150-400)
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
[2018-09-23] MEDS ORDERED: PROMETHAZINE HCL 25 MG/ML INJ IVP PRN (17:12)
[2018-09-23] MEDS ORDERED: LORazepam 0.5 MG TAB PO PRN (17:12)
[2018-09-23] MEDS ORDERED: ONDANSETRON 4 MG/2 ML VIAL IVP PRN (17:12)
[2018-09-23] MEDS ORDERED: ONDANSETRON DISINTEGRATING 4 MG TAB PO PRN (17:12)
[2018-09-23] MEDS ORDERED: ACETAMINOPHEN 325 MG TAB PO PRN (17:12)
[2018-09-23] MEDS ORDERED: HYDROCODONE/APAP 5/325 TAB PO PRN (17:12)
[2018-09-23] MEDS ORDERED: CARBOXYMETHYLCELLULOSE 1% 0.4 ML DROPERETTE LEFTEYE PRN (17:14)
[2018-09-23] MEDS ORDERED: NS 1,000 ML IV SCH (17:15)
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
[2018-09-23] MEDS: prednisoLONE ACET 1% 5 ML OPHT.BTL RTEYE SCH (22:09)
[2018-09-24 04:22] LABS: PLATELET COUNT 155 10^3/uL (150-400)
[2018-09-24] MEDS ORDERED: LISINOPRIL 10 MG TAB PO SCH (09:00)
[2018-09-24] MEDS ORDERED: ATORVASTATIN CALCIUM 40 MG TAB PO SCH (09:00)
[2018-09-24] MEDS ORDERED: ASPIRIN 325 MG TAB PO SCH (09:00)
--- NOTE | 2018-09-24 09:14 | GCON ---
CARDIOLOGY CONSULTATION DATE OF CONSULTATION: 09/24/2018 INDICATION FOR CONSULTATION: Syncope. HISTORY OF PRESENT ILLNESS: The patient is a pleasant 68-year-old gentleman with a known history of coronary artery disease, status post 6-vessel CABG in 2007, hyperlipidemia, hypertension, and a histo ry of radiculopathy who was in his usual state of health until yesterday. Of note, he has also been having complications post recent cataract surgery and has required further surgical procedures. He states that yesterday morning he was in his normal state of health. He had breakfast. He had an eye appointment at 8:10 yesterday morning. During the examination, he did have both his eyes dilated . After his eye appointment, he was in [place], and he went to lunch at [facility] and then drove from [place] back home towards [place]. He states he was driving down [address] when he began to dev elop acute abdominal distention and bloating. This was followed by the onset of nausea, which became progressively worse. Nausea then led to the development of marked and progressive diaphoresis. He was able to get off the road because he felt as if he was going to vomit. He was able to get his car to a stop at which point he states his vision "mike out." He states that he was somehow able to g et his car to a parking lot. At that point, he attempted to call his unsuccessfully, and 911 wa s called. He states that looking at his phone log there appears to be a period of time where he had briefly lost consciousness. When EMS arrived, he was markedly diaphoretic and felt weak but was at that point beginning to feel s omewhat better with less nausea and a return of his vision. He states that in the ambulance his symp toms continued to gradually improve. He did receive a liter of fluid in the ambulance. I do not hav e his ambulatory vital signs at this time prior to receiving IV fluids. He states that during his ev aluation in the ER his symptoms continued to gradually improve. Currently, at the time of my exam, erick acevedo is resting comfortably without complaint. The patient does have a known history of vasovagal syncope. He describes an episode of vasovagal syn cope that occurred when his son was a child and had suffered facial trauma and required sutures. Smitha s was a witnessed event in the emergency room. He describes an episode of marked diaphoresis and near syncope while hiking over 10 years ago. He de scribes a 2nd episode of near syncope when he got overheated, and this episode also ultimately led to evaluation in the emergency department, which ultimately led to a diagnosis of coronary disease and a 6-vessel coronary artery bypass graft surgery at [facility] in [facility], in in 2005. He was last seen by his primary verifying machine operator, Dr. Rose, in June 2018. At that point, he was gene rally feeling well. He did notice some decreased heart rate associated with symptoms of fatigue and dizziness and lightheadedness. Recent Holter monitor demonstrated normal sinus rhythm with an averag e heart rate of 72, minimum heart rate of 46. Symptoms of lightheadedness were associated with sinus tachycardia at 111 beats per minute. He had rare PVCs and no pauses. The patient has been exercising regularly. He is an avid hiker. He also belongs to a gym where he r ides a bike and exercises routinely. He denies any complaints of exertional chest pain, chest pressu re, shortness of breath, or dyspnea on exertion. He has no complaints of PND, orthopnea, or lower ex tremity edema. He denies any complaints of exertional intolerance. He denies any complaints of jaw pain, scapular pain, or back pain with exertion. Of note, he has not undergone a stress test since 2007, which was performed at [facility] in [place], [place]. PAST MEDICAL HISTORY: As outlined above. PAST SURGICAL HISTORY: History of appendectomy, arthroscopic shoulder surgery, vasectomy, and recent cataract surgery. MEDICATIONS ON ADMISSION: Include aspirin 81 mg daily, atorvastatin 80 mg daily, Praluent 75 mg q.2 weeks, Ventolin inhaler, vitamin D3. ALLERGIES TO MEDICATIONS: Include beta blockers, which result in syncope. FAMILY HISTORY: Coronary disease, leukemia, hypercholesterolemia, and hypertension. SOCIAL HISTORY: He is . He lives with his . He has 3 sons who live in the [facility]. He has several grandchildren. He exercises regularly. No illicit drug use. PHYSICAL EXAMINATION: VITAL SIGNS: Blood pressure of 123/87, heart rate of 57 in sinus rhythm, resp iratory rate of 16, oxygen saturation 94% on room air, temperature of 36.7. GENERAL: He is awake, a lert, oriented, and appropriate. No apparent distress. NECK: There is no evidence of JVP or caroti d bruits. LUNGS: Clear to auscultation bilaterally. CARDIAC: S1, S2. Regular rate and rhythm. N o murmurs, rubs, or gallops. PMI is not displaced. ABDOMEN: Soft, nontender, nondistended. There is no pulsatile mass or abdominal bruit. EXTREMITIES: There is no evidence of cyanosis, clubbing, o r edema. DATA: White blood cell count of 5.01, hemoglobin 14.5, hematocrit of 41.5, platelet count 155. Sodi um of 139, potassium 4.4, chloride 105, bicarb 25, BUN 22, creatinine 0.8, glucose 99. Troponin less than 0.012 x3. ECG on admission demonstrates sinus bradycardia at 59 beats per minute with normal intervals and norm al axis. Q waves in leads II, III, and F consistent with old inferior infarct. T-wave inversion iso lated to lead V3. Chest x-ray demonstrates no acute cardiopulmonary process. IMPRESSION: The patient is a pleasant 68-year-old gentleman who provides a detailed history of event s of yesterday. I think his findings are consistent with vasovagal syncope triggered by abdominal di stention, which may be related to increased anxiety regarding ongoing complications post cataract brittaney ronda coupled with eye dilatation and eye exam earlier today coupled with chicken sandwich from [employer] earlier in the day. He does have a history of vasovagal syncope in the past. Telemetry monitoring demonstrates sinus rhythm. Recent Holter monitor demonstrates sinus rhythm with an average of 72. H e has no exertional symptoms suggestive of acute coronary syndrome or progression of coronary disease . In the setting of no risk stratification since 2007, would recommend he undergo exercise nuclear stre ss test and complete 2D echocardiogram during his hospitalization. Would recommend, if workup is unr emarkable, consider implantable loop recorder secondary to his history of documenting lower heart rat es with symptoms of lightheadedness. I do not think that he requires a diagnostic left heart catheterization at this time. Would recommen d pursuing noninvasive testing as outlined above. PLAN: 1. Exercise nuclear stress test this morning. 2. Complete 2D echocardiogram. 3. Further workup pending the results of the above studies. /[id number]/MODL
[2018-09-24] MEDS: prednisoLONE ACET 1% 5 ML OPHT.BTL RTEYE SCH ×2 (10:00→16:23)
--- NOTE | 2018-09-24 13:01 | CPR ---
PROCEDURE: Exercise treadmill test of exercise treadmill MPI study. SUPERVISING MOTOR EXPRESS CLERK: Dr. Salas INDICATION FOR PROCEDURE: Syncopal event, known history of CAD with previous CABG. PRE: After obtaining informed consent, ensuring patient's n.p.o. status of caffeine for greater than 12 hours, patient was placed on electrocardiogram. Initial EKG shows sinus rhythm, normal axis, Q-waves noted in inferior leads. Patient denies of chest pain, pressure, or symptoms suggesting ischemia. Initial blood pressure 110/62, saturating 97% on room air. STRESS: The patient was placed on exercise treadmill, following standard Immanuel protocol with the following findings. 1. Patient exercised for 12 minute. 2. 12.1 METS. 3. Patient obtained a heart rate of 153 beats per minute, which was 99% of his maximum predicted heart rate. 4. Patient had no chest pain, pressure, or symptoms suggesting of ischemia. 5. Patient had submillimeter upsloping ST depression in inferolateral leads, nondiagnostic for ischemia. 6. SpO2 greater than 90% throughout testing. 7. Patient had occasional premature ventricular contraction during stress and recovery phase. No other malignant arrhythmias or pauses noted. 8. BP resting 110/62, peak exercise 154/78. 9. Test was stopped due to maximum effort. 10. Nichols treadmill score of 12 placing patient at low cardiovascular risk. RECOVERY: Patient recovered for 5 minutes with heart rate returning back to normal rhythm, occasional PVC were noted, but no other malignant arrhythmias. No other EKG changes, returned back to baseline. IMPRESSION: 68-year-old male with history of coronary artery disease with previous coronary artery bypass graft with recent syncopal event, undergoing exercise treadmill MPI study for evaluation of ischemia. No ST changes at peak exercise suggesting of ischemia. Nichols treadmill score placing of 12 placing at low cardiovascular risk. No symptoms of ischemia. Occasional premature ventricular contraction, but no other malignant arrhythmias or pauses noted. Results went over with Dr. Salas and Dr. Rose, patient's primary mammography technologist. /[id number]/MODL MTDD
--- NOTE | 2018-09-24 13:59 | ASMTCMCOM ---
CM Note CM Note Notes: Pts case discussed in tx rounds. Pt is a 68 y/o man admitted for syncope. Pt had a stress test today. If pts stress test is negative, pt will most likely d/c independent when medically stable. No therapies ordered at this time. CM available for changes. Plan: Independent Date Signed: 09/24/2018 01:58 PM Electronically Signed By:LINSEY Escalona
[2018-09-24 16:02] VITALS: BP 106/70
--- NOTE | 2018-09-24 16:15 | ECHO ---
[email or web address] [address] [address] Main: [phone] Fax: Transthoracic Echocardiogram Name: TJ BUTLER MR#: [id number] Study Date: 09/24/2018 Study Time: 09:33 AM Date of : 1950 Age: 68 year(s) Height: 180.3 cm (71 in.) Weight: 72.12 kg (159 lb.) BSA: 1.91 m2 Gender: Male Examination: Echo Indication: syncope; h/o CAD and CABG Image Quality: Adequate Contrast: Requested by: Paulo Salas BP: 123 mmHg/76 mmHg Heart Rate: Rhythm: Indication: syncope; h/o CAD and CABG Procedure Staff Crew Team Member: Connie Zhou [facility] Reading Physician: Marcos Oro MD Requesting Provider: Conclusions: Normal size left ventricle. Borderline concentric LV hypertrophy. The ejection fraction is visually estimated to be 50 %. There is inferior and posterior hypokinesis.. The mitral valve is normal in appearance and function. Mild mitral valve regurgitation is present. The aortic valve is tri-leaflet and functions normally. There is no aortic valve regurgitation. No aortic valve stenosis is present. Right ventricular systolic pressure measures 21mmHg. Normal size ascending aorta measuring 3.3 cm. No old studies for comparison. Measurements: Chambers Valvular Assessment AV/MV Valvular Assessment TV/PV Normal Normal Normal Name Value Range Name Value Range Name Value Range Ao Madyson (MM): 3.4 cm (2.2 cm-3.7 AV Vmax: 0.99 m/s (1 m/s-1.7 TR Vmax: 1.97 mm/s ( - ) cm) m/s) TR PGmax: 16 mmHg ( - ) IVSd (2D): 1.1 cm (0.6 cm-1.1 AV maxP mmHg ( - ) syst. PAP: 21 mmHg ( - ) cm) LVOT Vmax: 0.68 m/s (0.7 m/s-1.1 PV Vmax: 1.29 m/s (0.6 m/s-0.9 LVDd (2D): 4.6 cm (4.2 cm-5.9 m/s) m/s) cm) MIRLANDE (Vmax): 2.9 cm2 ( - ) PV PGmax: 7 mmHg ( - ) LVDs (2D): 3.2 cm (2.1 cm-4 MV E Vmax: 0.42 m/s ( - ) cm) MV A Vmax: 0.53 m/s ( - ) LVPWd (2D): 1.0 cm (0.6 cm-1 MV E/A: 0.79 ( - ) cm) LVOTd 2.3 cm 2.3 cm mm LVEF (BP): 56 % (>=55 %) Visual EF: 50 % Patient: TJ BUTLER Study Date: 09/24/2018 Page 1 of 2 09:33 AM RVDd(2D): 3.4 cm (1.9 cm-3.8 cmmm) Continued Measurements: Chambers Valvular Assessment AV/MV Valvular Assessment TV/PV Name Value Name Value Name Value LADs: 3.8 cm MV DecTime: 243 m/s CVP (est.): 5 mmHg LADs Lon.3 cm MV E' Septal: 0.08 m/s LA Area: 17.3 cm2 MV E/E' Septal: 5.60 LA Volume: 58 ml MV E/E' Lateral: 4.30 LA Volume Index: 30.4 ml/m2 TAPSE: 1.8 cm RA Area: 12.4 cm2 Additional Vessels Name Value Ao Ascendin.3 cm Findings: Left Ventricle: Normal size left ventricle. Borderline concentric LV hypertrophy. The ejection fraction is visually estimated to be 50 %. There is inferior and posterior hypokinesis.. Right Ventricle: Normal size right ventricle. Normal RV function. Left Atrium: The left atrium is normal in size. Right Atrium: The right atrium is normal in size. Mitral Valve: The mitral valve is normal in appearance and function. No mitral stenosis is present. Mild mitral valve regurgitation is present. Aortic Valve: The aortic valve is tri-leaflet and functions normally. There is no aortic valve regurgitation. No aortic valve stenosis is present. Tricuspid Valve: The tricuspid valve is normal in appearance and function. Trivial to mild tricuspid valve regurgitation. Right ventricular systolic pressure measures 21mmHg. The pulmonary artery pressure is normal. Pulmonic Valve: The pulmonic valve is normal in appearance. Trivial pulmonic valve regurgitation. Aorta: Normal size aortic root measuring 3.4 cm. Normal size ascending aorta measuring 3.3 cm. IVC: Normal size and course of the IVC. Pericardium: No pericardial effusion. (No Signature Object) Patient: TJ BUTLER Study Date: 09/24/2018 Page 2 of 2 09:33 AM [id number]
--- NOTE | 2018-09-24 18:54 | GDS ---
DISCHARGE DIAGNOSES: 1. Possible unstable angina. 2. Near syncope. 3. Mild reversibility on stress testing. 4. Coronary artery disease, status post coronary artery bypass graft. HISTORY: The patient is a 68-year-old male with a history of CABG in 2005, presented with nausea, di aphoresis and near-syncope which is his typical anginal equivalent. He was admitted to the hospital under observation where serial troponins and EKGs were negative. Myocardial perfusion stress testing was performed and showed a large fixed inferolateral perfusion defect with some mild ele-infarct is chemia. This was reviewed by Dr. Salas and felt to be not necessitating further cardiac catheterizati on as this is mostly consistent with an old AR. Echocardiogram showed an ejection fraction of 50%. The patient's symptoms completely resolved and given his unremarkable evaluation he was discharged ho me. DISCHARGE MEDICATIONS: Please see computer record for full detailed list. There are no new medicati ons given at the time of hospital discharge. DISCHARGE INSTRUCTIONS: Follow up with Cardiology and primary care. Patient was seen examined by me on the day of discharge. /[id number]/MODL
--- NOTE | 2018-09-24 20:50 | CPEKG ---
Test Reason : OPEN Blood Pressure : / mmHG Vent. Rate : 087 BPM Atrial Rate : 087 BPM P-R Int : 159 ms QRS Dur : 094 ms QT Int : 354 ms P-R-T Axes : 096 066 082 degrees QTc Int : 426 ms Sinus rhythm Prior inferior infarction Confirmed by Carlos Rose ([id number]) on 09/24/2018 8:49:36 PM Referred By: Confirmed By:Carlos Rose
--- NOTE | 2018-09-26 04:44 | CPEKG ---
Test Reason : OPEN Blood Pressure : / mmHG Vent. Rate : 059 BPM Atrial Rate : 058 BPM P-R Int : 167 ms QRS Dur : 095 ms QT Int : 424 ms P-R-T Axes : 063 025 019 degrees QTc Int : 420 ms Sinus rhythm Confirmed by Sage Rivera ([id number]) on 09/26/2018 4:43:33 AM Referred By: Confirmed By:Sage Rivera
== END 2018-09-24 18:02 | disposition home or self-care (01) ==
LOC: EDUNIT# → F2W 17:58
PROVIDERS: ADMIT Internal Medicine; ATTEND Internal Medicine
DX: R55 Syncope and collapse (principal); I25.10 Atherosclerotic heart disease of native coronary artery without angina pectoris; R94.39 Abnormal result of other cardiovascular function study; I10 Essential (primary) hypertension; E78.00 Pure hypercholesterolemia, unspecified
CPT/HCPCS: 71045; 78452; 93005; 93017; 93306; 99285; A9500; G0378; 84484-PO

== ENCOUNTER → 2019-05-11 | Outpatient (CLI) | payer OTHER | LOC: GIMAGING 10:23 ==

== ENCOUNTER → 2019-05-12 | Outpatient (CLI) | payer OTHER | LOC: FIMAGING 17:47 ==